=== PATIENT | male | born 1955 | race Caucasian/White ===

== ENCOUNTER → 2021-01-17 | Day surgery (SDC) | payer OTHER ==
[~2021-01-17] MED LIST: CERTAGEN1 EACH PO; COLESTID 1GM TAB1 GM PO; LIPITOR10 MG PO; LIPITOR20 MG PO; LOVASTATIN10 MG PO; LOVAZA1 GM PO; NORCO 5-325 TA1 EACH PO; ONDANSETRON ODT8 MG PO; PRILOSEC20 MG PO; PRINIVIL10 MG PO; ZYRTEC10 M3 PO
[2021-01-17 09:48] LABS: HCT 38.5 % (42.0-52.0); HGB 13.6 g/dl (13.2-18.0); MCH 34.5 pg (25.0-31.0); MCHC 35.3 g/dL (32.0-36.0); MCV 97.7 fL (78.0-100.0); RBC 3.94 M/uL (4.70-6.00); RDW 11.6 % (11.5-14.0)
[2021-01-17 10:01] LABS: ALBUMIN 3.6 g/dL (3.4-5.0); BILIRUBIN - TOTAL 0.6 mg/dL (0.2-1.0); BUN/CREAT RATIO (CALC) 17.4 RATIO; CREATININE 0.69 mg/dL (0.67-1.17); POTASSIUM 4.8 mmol/L (3.5-5.1); TOTAL PROTEIN 6.6 g/dL (6.4-8.2)
== END | disposition home or self-care (01) ==
LOC: FAS 08:58
PROVIDERS: Surgery
DX: K29.60 Other gastritis without bleeding (principal); E78.70 Disorder of bile acid and cholesterol metabolism, unspecified; K21.9 Gastro-esophageal reflux disease without esophagitis; I10 Essential (primary) hypertension; E78.00 Pure hypercholesterolemia, unspecified; G47.30 Sleep apnea, unspecified; Z20.822 Contact with and (suspected) exposure to COVID-19; Z79.899 Other long term (current) drug therapy; Z98.52 Vasectomy status; Z82.49 Family history of ischemic heart disease and other diseases of the circulatory system; Z80.1 Family history of malignant neoplasm of trachea, bronchus and lung; Z83.3 Family history of diabetes mellitus; Z99.89 Dependence on other enabling machines and devices; Z91.048 Other nonmedicinal substance allergy status
CPT/HCPCS: 36415; 80053; J2250; J2704; J7120; U0002

== ENCOUNTER → 2021-01-22 | Day surgery (SDC) | payer OTHER ==
[2021-01-22 09:53] LABS: HCT 35.4 % (42.0-52.0); HGB 12.7 g/dl (13.2-18.0); MCH 34.6 pg (25.0-31.0); MCHC 35.9 g/dL (32.0-36.0); MCV 96.5 fL (78.0-100.0); MPV 10.6 fL (6.0-9.5); RBC 3.67 M/uL (4.70-6.00); RDW 11.5 % (11.5-14.0); WBC 4.6 K/uL (4.0-10.5)
[2021-01-22 10:14] LABS: ALBUMIN 3.3 g/dL (3.4-5.0); BILIRUBIN - TOTAL 0.7 mg/dL (0.2-1.0); BUN/CREAT RATIO (CALC) 17.6 RATIO; CREATININE 0.74 mg/dL (0.67-1.17); GLOBULIN (CALCULATION) 3.1 g/dL; POTASSIUM 4.3 mmol/L (3.5-5.1); TOTAL PROTEIN 6.4 g/dL (6.4-8.2)
== END | disposition home or self-care (01) ==
LOC: FAS 08:57
PROVIDERS: Surgery
DX: K81.1 Chronic cholecystitis (principal); K21.9 Gastro-esophageal reflux disease without esophagitis; I10 Essential (primary) hypertension; G47.30 Sleep apnea, unspecified; Z20.822 Contact with and (suspected) exposure to COVID-19; Z79.899 Other long term (current) drug therapy; Z98.52 Vasectomy status; Z82.49 Family history of ischemic heart disease and other diseases of the circulatory system; Z80.1 Family history of malignant neoplasm of trachea, bronchus and lung; Z83.3 Family history of diabetes mellitus; Z88.8 Allergy status to other drugs, medicaments and biological substances; Z99.89 Dependence on other enabling machines and devices; Z98.890 Other specified postprocedural states
CPT/HCPCS: 36415; 74300; 80053; C1758; J1100; J1170; J2250; J2405; J2704; J3010; J7120; Q9967